=== PATIENT | female | born 1955 | race Caucasian/White ===

== ENCOUNTER 2019-04-28 12:09 | Inpatient (IN) | payer OTHER ==
[~2019-04-28] VITALS: Ht 160 cm; Wt 107.9 kg
[2019-04-28] MEDS ORDERED: MORPHINE SULFATE 4 MG/ML SYR/VIAL IV ONE (14:00)
[2019-04-28] MEDS ORDERED: ONDANSETRON HCL 4 MG/2 ML VIAL IV ONE (14:00)
[2019-04-28 14:42] LABS: Basophils # (auto) 0.1 uL; Eosinophils # (auto) 0.1 uL; Lymphocytes # (auto) 1.2 uL; Monocytes # (auto) 0.6 uL; Monocytes % (auto) 6.4 % (0.0-12.0)
[2019-04-28 14:44] LABS: Basophils % (auto) 1.2 % (0.0-2.0); Eosinophils % (auto) 0.8 % (0.0-7.0); Hematocrit 44.5 % (36.0-46.0); Hemoglobin 14.1 g/dL (12.2-16.2); Lymphocytes % (auto) 11.8 % (10.0-50.0); Mean Corpuscular Hemoglobin 26.7 pg (28.0-32.0); Mean Corpuscular Hgb Conc. 31.8 g/dL (32.0-36.0); Mean Corpuscular Volume 83.9 fL (80.0-100.0); Neutrophils # (auto) 7.9 uL; Neutrophils % (auto) 79.8 % (37.0-80.0); Nucleated Red Blood Cells % 0.1 %; Platelet Count (auto) 211 10^3/uL (140-450); White Blood Cell 9.9 10^3/uL (4.4-10.8)
[2019-04-28 14:58] LABS: INR 0.95 (0.9-1.15); Partial Thromboplastin Time 21.1 sec (23.64-32.05)
[2019-04-28 15:23] LABS: Albumin 3.6 g/dL (3.4-5.0); Anion Gap 11 (5-15); Blood Urea Nitrogen 13 mg/dL (7-18); Calcium 9.3 mg/dL (8.5-10.1); Carbon Dioxide 20 mmol/L (21-32); Chloride 109 mmol/L (98-107); Glucose 132 mg/dL (74-106); Potassium 4.3 mmol/L (3.5-5.1); Sodium 140 mmol/L (136-145)
[2019-04-28 15:26] LABS: Alanine Aminotransferase 48 U/L (13-56); Aspartate Aminotransferase 37 U/L (15-37); BUN/Creatinine Ratio 15.9; GFR African American 91 mL/min; GFR Non-African American 75 mL/min
[2019-04-28 15:30] LABS: Alkaline Phosphatase 92 U/L (45-117); Bilirubin, Total 0.3 mg/dL (0.2-1.0); Total Protein 7.5 g/dL (6.4-8.2)
[2019-04-28] MEDS ORDERED: DEXTROSE (50%) 50ML SYRG IV PRN (17:30)
[2019-04-28] MEDS ORDERED: NITROGLYCERIN 0.4 MG SL TAB SL PRN (17:30)
[2019-04-28] MEDS ORDERED: MORPHINE SULF INJ 2 MG/ML SYRINGE 1ML IV PRN (17:30)
[2019-04-28] MEDS: ONDANSETRON HCL 4 MG/2 ML VIAL IV PRN ×2 (18:15→22:01)
[2019-04-28] MEDS: MORPHINE SULF INJ 2 MG/ML SYRINGE 1ML IV PRN ×2 (18:15→22:02)
--- NOTE | 2019-04-28 18:37 | NUR ---
MS admit from ER YASMINE MURRAY admitted to [facility] after SBAR received. Patient oriented to BRENDA TYSON RN primary RN, ROOM 284 b, and unit policies regarding patient care and visiting hours. Patient weighed by bedscale and encouraged to call if they need something. All questions and concerns addressed, patient verbalized understanding. PATIENT REQUESTED TWO PILLOWS FOR OPTIMAL COMFORT, NO SIGNS OF DISTRESS NOTED. PATIENT ABLE TO AMBULATE TO BATHROOM WITH MINIMAL ASSISTANCE. EDUCATED PT SKILLED LIGHT. PHYSICAL ASSESSMENT COMPLETED AT ADMISSION PROCESS STARTED, WILL ENDORSE COMPLETION TO NOC RN.
[2019-04-28 18:47] VITALS: BP 141/80
--- NOTE | 2019-04-28 19:30 | NUR ---
Opening Shift Note Assumed care of patient, awake and alert. No S/S of distress/SOB or pain. Instructed on POC and to call for assist PRN. This RN will continue to monitor for changes Q1hr and PRN. Bed in low position, locked, with HOB in Sinclair's position. Nurse call light positioned to pt's R side for access of pt. L arm in sling.
--- NOTE | 2019-04-28 19:31 | NUR ---
ENDORSED CARE TO MARCIA GARVIN
[2019-04-28] MEDS ORDERED: LOSA-69 PO (20:51)
[2019-04-28] MEDS ORDERED: METF-869 PO (20:51)
[2019-04-28 21:47] LABS: Cholesterol 138 mg/dL (< 200)
[2019-04-28 21:49] LABS: HDL Cholesterol 42 mg/dL (40-59); LDL Cholesterol 82 mg/dL (< 100); Triglycerides 96 mg/dL (< 150)
[2019-04-28 22:00] VITALS: BP 144/86
[2019-04-28] MEDS: ATORVASTATIN 20 MG TAB PO SCH (22:03)
[2019-04-28] MEDS: METOPROLOL TARTRATE 25 MG TAB PO SCH (22:07)
[2019-04-28] MEDS: MONTELUKAST SODIUM 10 MG TAB PO SCH (22:09)
[2019-04-28] MEDS: ACCU-CHEK COMFORT CURVE STRIP VI SCH (22:13)
[2019-04-28] MEDS: InsuLIN REG 1unit/0.01ml Soln (100units/ml) SC SCH (22:14)
[2019-04-29] MEDS: ONDANSETRON HCL 4 MG/2 ML VIAL IV PRN (03:12)
[2019-04-29] MEDS: MORPHINE SULF INJ 2 MG/ML SYRINGE 1ML IV PRN ×3 (03:20→21:43)
--- NOTE | 2019-04-29 03:33 | NUR ---
Assisted pt to toilet after admin of morphine and zofran per pt request. Unable to get UA at this time due to pt's obesity and inability to position self over toilet for nurse to catch urine in cup.
[2019-04-29 05:43] VITALS: BP 125/73
[2019-04-29] MEDS: ACCU-CHEK COMFORT CURVE STRIP VI SCH ×4 (05:53→21:43)
[2019-04-29] MEDS: InsuLIN REG 1unit/0.01ml Soln (100units/ml) SC SCH ×4 (05:53→23:33)
[2019-04-29 07:06] LABS: Urine WBC None Seen /hpf (0 - 5)
[2019-04-29 07:16] LABS: Urine Bacteria NONE SEEN /hpf (None Seen); Urine Blood Negative /uL (Negative); Urine Mucus FEW (None Seen); Urine Specific Gravity 1.024 (1.001-1.035)
[2019-04-29 08:22] VITALS: BP 146/89
--- NOTE | 2019-04-29 08:22 | NUR ---
OPENING NOTE: PATIENT RESTING IN BEDSIDE CHAIR. UPDATED ON PLAN OF CARE. EVEN AND UNLABORED RESPIRATIONS NOTED NO SIGNS OF DISTRESS.ALL QUESTIONS ANSWERED. ASSISTED BACK IN BED PER PATIENT REQUEST. CALL LIGHT WITHIN REACH WILL CONTINUE TO MONITOR.
[2019-04-29] MEDS: METOPROLOL TARTRATE 25 MG TAB PO SCH ×2 (09:13→21:42)
[2019-04-29] MEDS: PANTOPRAZOLE 40 MG TAB PO SCH (09:13)
[2019-04-29] MEDS: HYDROcodone-ACET 5/325MG TAB PO PRN ×2 (09:13→17:55)
--- NOTE | 2019-04-29 09:15 | NUR ---
PAIN: PATIENT REQUESTING SOMETHING FOR PAIN IN LEFT SHOULDER. ALSO, REPORTS PAIN IN RIGHT UPPER ARM IV SITE. WILL MEDICATE AND ASSESS FOR NEW IV ACCESS ORDERED.
--- NOTE | 2019-04-29 09:55 | NUR ---
NEW IV PLACED BY CLINICAL COURIER RHONDA. RIGHT WRIST 20G SALINE LOCKED.
--- NOTE | 2019-04-29 10:02 | NUR ---
PATIENT REQUEST TO MOVE IV SITE DUE TO PAIN. WILL ASSESS FOR POSSIBLE MIDLINE OR NEW IV.
--- NOTE | 2019-04-29 10:12 | NUR ---
RE: CT order Called radiology RE: active CT order. seal delivery vehicle team technicianJuan Carlos, to call this RN back with an update.
--- NOTE | 2019-04-29 10:16 | NUR ---
RE: Diet Updated Sarah Flowers.Emerald., on POC. Orders received and read back to verify.
--- NOTE | 2019-04-29 10:20 | NUR ---
MIDLINE ORDER PLACED.
--- NOTE | 2019-04-29 10:39 | NUR ---
PATIENT TAKEN DOWN TO CT. DR. DARWIN QUISPE.
--- NOTE | 2019-04-29 12:30 | NUR ---
Midline Placement: Patient educated on need for midline placement. All risks and benefits explained and all questions and concerns addresses prior to procedure. 18g/10cm midline inserted via right basilic vein using Ultrasound. Sterile technique utilized. Blood return obtained from lumen and flushed easily with NS using proper technique. Midline secured with saline lock; biodisc and occlusive dressing applied. Primary RN notified. Midline lot #[id number]
[2019-04-29 12:46] VITALS: BP 125/72
--- NOTE | 2019-04-29 16:05 | NUR ---
Order received: Diet Spoke with Dr. Willingham on POC, pending orthopedic consult and diet order. Patient has not been seen by orthopedic MD. Diet order received and read back to verify.
[2019-04-29 16:45] VITALS: BP 130/64
--- NOTE | 2019-04-29 18:53 | NUR ---
CLOSING NOTE: PATIENT RESTING IN BEDSIDE CHAIR. MEDICATED WITH PAIN MEDICATION ORDERED. ASSISTED PATIENT WITH DINNER TRAY, NO SIGNS OF DISTRESS NOTED. ADDRESSED ALL CONCERNS AND QUESTIONS AT THIS TIME, CALL LIGHT WITHIN REACH. WILL ENDORSE CARE TO NOC RN.
--- NOTE | 2019-04-29 19:17 | NUR ---
ENDORSED CARE TO NARS BHARATHI.
--- NOTE | 2019-04-29 19:45 | NUR ---
RECEIVED PATIENT IN BED, AAOX4. NO DISTRESS NOTED. INTRODUCED MYSELF TO THE PATIENT. COMPLAINED OF LEFT SHOULDER PAIN. WILL MEDICATE PATIENT. MILD BLE WEAKNESS NOTED. PATIENT IS ANXIOUS. NO SOB NOTED. LEFT SLING IS ON. POCS DISCUSSED WITH PATIENT AND SHOWED UNDERSTANDING. BED KEPT ON LOWEST POSITION. SIDE RAILS UP. CALL LIGHT/TABLE IN REACH. KEPT COMFORTABLE.
[2019-04-29] MEDS: ATORVASTATIN 20 MG TAB PO SCH (21:42)
[2019-04-29] MEDS: MONTELUKAST SODIUM 10 MG TAB PO SCH (21:43)
[2019-04-29 22:00] VITALS: BP 140/70
[2019-04-30] MEDS: MORPHINE SULF INJ 2 MG/ML SYRINGE 1ML IV PRN (04:41)
[2019-04-30] MEDS: ACCU-CHEK COMFORT CURVE STRIP VI SCH ×2 (06:11→12:09)
[2019-04-30] MEDS: InsuLIN REG 1unit/0.01ml Soln (100units/ml) SC SCH ×2 (06:12→12:10)
--- NOTE | 2019-04-30 06:17 | NUR ---
ON BED, ASLEEP. NO DISTRESS NOTED. FOR MORE CARE AND MANAGEMENT.
--- NOTE | 2019-04-30 08:00 | NUR ---
Opening Note Assumed care of patient, she is A & O x 4, patient still in a significant amount of pain to the left arm. Patient states "it is a 7 when I am not moving, and through the roof when I move." Patient has no other complaints. POC discussed. Bed is in low, locked position. Patient in chair for breakfast, call light within reach. Educated to call for assistance PRN. Will continue to monitor Q1h and PRN.
[2019-04-30 09:00] VITALS: BP 157/83
[2019-04-30] MEDS: PANTOPRAZOLE 40 MG TAB PO SCH (10:20)
[2019-04-30] MEDS: HYDROcodone-ACET 5/325MG TAB PO PRN (10:21)
[2019-04-30] MEDS: METOPROLOL TARTRATE 25 MG TAB PO SCH (10:24)
[2019-04-30 11:50] VITALS: BP 157/83
--- NOTE | 2019-04-30 12:45 | NUR ---
Patient waiting for ride.
== END 2019-04-30 15:18 | disposition home or self-care (01) | DRG 563 ==
LOC: ER 12:14 → OVERFLOW 12:15 → WEST WING 18:41
PROVIDERS: ADMIT Nurse Practitioner Acute Care; ATTEND Internal Medicine Nephrology
DX: S42.202A Unspecified fracture of upper end of left humerus, initial encounter for closed fracture (principal); Z68.41 Body mass index [BMI] 40.0-44.9, adult; E11.9 Type 2 diabetes mellitus without complications; Z79.84 Long term (current) use of oral hypoglycemic drugs; I10 Essential (primary) hypertension; J45.909 Unspecified asthma, uncomplicated; E78.5 Hyperlipidemia, unspecified; E66.9 Obesity, unspecified; W01.0XXA Fall on same level from slipping, tripping and stumbling without subsequent striking against object, initial encounter; Y93.01 Activity, walking, marching and hiking; Y92.481 Parking lot as the place of occurrence of the external cause
CPT/HCPCS: 36415; 71045; 73030; 73100; 73140; 73200; 80053; 80061; 81001; 82962; 83036; 84443; 84484; 85025; 85610; 85730; 86850; 86900; 86901; G0378; J1815; J2405

== ENCOUNTER 2019-07-12 18:13 | Emergency (ER) | payer OTHER ==
[~2019-07-12] VITALS: Ht 160 cm; Wt 108.0 kg
[~2019-07-12 18:13] MED LIST: LOSA-69 PO; METF-869 PO
[2019-07-12 19:12] LABS: Basophils # (auto) 0.1 uL; Basophils % (auto) 1.1 % (0.0-2.0); Eosinophils # (auto) 0.2 uL; Eosinophils % (auto) 2.5 % (0.0-7.0); Hematocrit 42.3 % (36.0-46.0); Hemoglobin 13.9 g/dL (12.2-16.2); Lymphocytes # (auto) 1.6 uL; Lymphocytes % (auto) 20.8 % (10.0-50.0); Mean Corpuscular Hemoglobin 27.5 pg (28.0-32.0); Mean Corpuscular Hgb Conc. 32.7 g/dL (32.0-36.0); Mean Corpuscular Volume 83.9 fL (80.0-100.0); Monocytes # (auto) 0.5 uL; Monocytes % (auto) 6.5 % (0.0-12.0); Neutrophils # (auto) 5.4 uL; Neutrophils % (auto) 69.1 % (37.0-80.0); Platelet Count (auto) 234 10^3/uL (140-450); Red Blood Cells 5.05 10^6/uL (4.0-5.20); Red Cell Distribution Width 13.9 % (11.8-14.3); White Blood Cell 7.8 10^3/uL (4.4-10.8)
[2019-07-12 19:29] LABS: Albumin 3.6 g/dL (3.4-5.0); Potassium 4.2 mmol/L (3.5-5.1)
[2019-07-12 19:34] LABS: BUN/Creatinine Ratio 12.9; Bilirubin, Total 0.2 mg/dL (0.2-1.0); Total Protein 7.8 g/dL (6.4-8.2)
[2019-07-12 20:21] LABS: Urine Bacteria NONE SEEN /hpf (None Seen); Urine Blood 2+ /uL (Negative); Urine Hyaline Cast FEW /lpf (0 - 2); Urine Mucus FEW (None Seen); Urine Specific Gravity 1.022 (1.001-1.035); Urine WBC 17 /hpf (0 - 5)
[2019-07-12 22:27] VITALS: BP 130/74
== END 2019-07-12 22:42 | disposition home or self-care (01) ==
LOC: ER 18:13
DX: N39.0 Urinary tract infection, site not specified (principal); E78.5 Hyperlipidemia, unspecified; E11.9 Type 2 diabetes mellitus without complications; I10 Essential (primary) hypertension
CPT/HCPCS: 36415; 80053; 81001; 85025

== ENCOUNTER 2019-08-02 23:15 | Emergency (ER) | payer OTHER ==
[~2019-08-02] VITALS: Ht 160 cm; Wt 108.0 kg
[2019-08-02 23:52] LABS: Urine WBC None Seen /hpf (0 - 5)
[2019-08-03 00:05] LABS: Urine Bacteria NONE SEEN /hpf (None Seen); Urine Blood 3+ /uL (Negative); Urine Mucus FEW (None Seen); Urine Specific Gravity 1.018 (1.001-1.035)
[2019-08-03 02:52] LABS: Basophils # (auto) 0.1 uL; Eosinophils # (auto) 0.2 uL; Hemoglobin 14.1 g/dL (12.2-16.2); Monocytes # (auto) 0.7 uL
[2019-08-03 02:54] LABS: Basophils % (auto) 0.9 % (0.0-2.0); Eosinophils % (auto) 2.5 % (0.0-7.0); Lymphocytes # (auto) 2.1 uL; Lymphocytes % (auto) 25.8 % (10.0-50.0); Mean Corpuscular Hemoglobin 26.5 pg (28.0-32.0); Mean Corpuscular Hgb Conc. 32.1 g/dL (32.0-36.0); Mean Corpuscular Volume 82.8 fL (80.0-100.0); Monocytes % (auto) 8.3 % (0.0-12.0); Neutrophils % (auto) 62.5 % (37.0-80.0); Nucleated Red Blood Cells % 0.1 %; Platelet Count (auto) 253 10^3/uL (140-450); Red Blood Cells 5.31 10^6/uL (4.0-5.20); Red Cell Distribution Width 14.2 % (11.8-14.3)
[2019-08-03 03:11] LABS: Albumin 3.7 g/dL (3.4-5.0); BUN/Creatinine Ratio 18.4; Calcium 9.7 mg/dL (8.5-10.1)
[2019-08-03 03:14] LABS: Bilirubin, Total 0.2 mg/dL (0.2-1.0); Total Protein 8.1 g/dL (6.4-8.2)
[2019-08-03] MEDS ORDERED: ONDANSETRON HCL 4 MG/2 ML VIAL IV ONE (03:45)
[2019-08-03] MEDS ORDERED: SODIUM CHLORIDE 0.9% 1,000 ML IV ONE (03:45)
[2019-08-03] MEDS ORDERED: KETOROLAC TROMETH 30 MG/ML 1ML VIAL IV ONE ×2 (03:45→07:15)
[2019-08-03] MEDS ORDERED: MORPHINE SULFATE 4 MG/ML SYR/VIAL IV ONE (04:00)
[2019-08-03] MEDS ORDERED: METOCLOPRAMIDE HCL 5MG/ml INJ 2ml VIAL IV ONE (07:15)
[2019-08-03] MEDS ORDERED: TAMSULOSIN HYDROCHLORIDE 0.4 MG CAP PO ONE (07:15)
[2019-08-03 08:54] VITALS: BP 114/61
== END 2019-08-03 08:56 | disposition home or self-care (01) ==
LOC: ER 23:18
DX: N13.30 Unspecified hydronephrosis (principal); N20.2 Calculus of kidney with calculus of ureter; E11.21 Type 2 diabetes mellitus with diabetic nephropathy; R74.8 Abnormal levels of other serum enzymes; K57.30 Diverticulosis of large intestine without perforation or abscess without bleeding; J45.909 Unspecified asthma, uncomplicated; E11.9 Type 2 diabetes mellitus without complications; E78.5 Hyperlipidemia, unspecified; I10 Essential (primary) hypertension; Z90.710 Acquired absence of both cervix and uterus
CPT/HCPCS: 36415; 74176; 80053; 81001; 82962; 83690; 85025; 96374; 96375; 96376; 99284; J1885; J2270; J2405; J2765; J7030